=== PATIENT | male | born 1965 | race Caucasian/White ===

== ENCOUNTER 2020-10-18 17:35 | Day surgery (SDC) | payer OTHER ==
[~2020-10-18] VITALS: Ht 182.9 cm; Wt 115.7 kg
[2020-10-18 19:34] LABS: HEMOGLOBIN 13.6 gm/dl (14.0-17.5); RED BLOOD COUNT 4.36 M/UL (4.20-5.50); WHITE BLOOD COUNT 8.6 K/UL (4.5-11.0)
[2020-10-18 19:42] LABS: BUN/CREATININE RATIO 13 (0-10)
[2020-10-18] MEDS ORDERED: CREON DR 12,001 EACH PO (21:07)
[2020-10-18] MEDS ORDERED: DILTIAZEM 24HR240 M1 PO (21:08)
[2020-10-18] MEDS ORDERED: FLOMAX 0.4 MG0.4 MG PO (21:08)
[2020-10-18] MEDS ORDERED: GABAPENTIN300 MG PO (21:08)
[2020-10-18] MEDS ORDERED: POTASSIUM CHLO10 MEQ PO (21:09)
[2020-10-18] MEDS ORDERED: PROTONIX 40 MG40 M1 PO (21:09)
[2020-10-19] MEDS ORDERED: HYDROCODON-ACE1 EAC2 PO ×2 (13:11→15:38)
[2020-10-19] MEDS ORDERED: KEFLEX PO (14:24)
[2020-11-30] MEDS ORDERED: NABUMETONE750 MG PO (09:15)
[2020-11-30] MEDS ORDERED: PHENERGAN IM25 MG/ML PO (09:15)
[2020-11-30] MEDS ORDERED: HYDROCODON-ACE1 EAC2 PO (11:09)
[2020-11-30] MEDS ORDERED: CEPHALEXIN500 MG PO (12:08)
== END 2020-10-19 14:00 | disposition home or self-care (01) ==
LOC: ER1 17:35 → CDU 18:55 → ER1 18:55 → CDU 18:55 → OR 10-19 10:41 → CDU 10-19 14:00 → OR 10-19 14:00 → CDU 10-19 14:00
PROVIDERS: Internal Medicine Infectious Disease; Orthopaedic Surgery
PROC: 3E0T3BZ Introduction of Anesthetic Agent into Peripheral Nerves and Plexi, Percutaneous Approach (ICD-10-PCS; 2020-10-19)
PROC: 0PSV34Z Reposition Left Finger Phalanx with Internal Fixation Device, Percutaneous Approach (ICD-10-PCS; principal; 2020-10-19 11:56)
DX: S62.613B Displaced fracture of proximal phalanx of left middle finger, initial encounter for open fracture (principal); K21.9 Gastro-esophageal reflux disease without esophagitis; N40.0 Benign prostatic hyperplasia without lower urinary tract symptoms; I48.92 Unspecified atrial flutter; F17.210 Nicotine dependence, cigarettes, uncomplicated; G89.4 Chronic pain syndrome; G89.18 Other acute postprocedural pain; F11.20 Opioid dependence, uncomplicated; Z20.822 Contact with and (suspected) exposure to COVID-19; W29.4XXA Contact with nail gun, initial encounter; W45.0XXA Nail entering through skin, initial encounter; Y92.018 Other place in single-family (private) house as the place of occurrence of the external cause
CPT/HCPCS: 73130; 76000; 80053; 83735; 84443; 85025; 85610; 90471; 90715; 93005; 96374; 96375; 96376; 99284; C1713; G0378; J0690; J1100; J2001; J2250; J2270; J2370; J2405; J2704; J2795; J3010; J7030; J7120; U0002

== ENCOUNTER 2020-11-08 09:05 | Inpatient (IN) | payer OTHER ==
[~2020-11-08] VITALS: Ht 182.9 cm; Wt 93.9 kg
[~2020-11-08 09:05] MED LIST: CREON DR 12,001 EACH PO; DILTIAZEM 24HR240 M1 PO; FLOMAX 0.4 MG0.4 MG PO; GABAPENTIN300 MG PO; HYDROCODON-ACE1 EAC2 PO; KEFLEX PO; POTASSIUM CHLO10 MEQ PO; PROTONIX 40 MG40 M1 PO
[2020-11-08] MEDS ORDERED: ROBAXIN 750 MG750 MG PO (10:29)
[2020-11-08] MEDS ORDERED: HYDROCODON-ACE1 EAC2 PO (12:11)
[2020-11-08 15:20] LABS: HEMOGLOBIN 13.3 gm/dl (14.0-17.5); RED BLOOD COUNT 4.29 M/UL (4.20-5.50)
[2020-11-08 15:38] LABS: BUN/CREATININE RATIO 22 (0-10)
[2020-11-08] MEDS ORDERED: OXYCODONE-ACET1 EACH PO (16:53)
[2020-11-09 04:42] LABS: HEMOGLOBIN 13.4 gm/dl (14.0-17.5); RED BLOOD COUNT 4.34 M/UL (4.20-5.50); WHITE BLOOD COUNT 7.6 K/UL (4.5-11.0)
[2020-11-09 04:48] LABS: BUN/CREATININE RATIO 18 (0-10)
[2020-11-10 02:51] LABS: HEMOGLOBIN 13.1 gm/dl (14.0-17.5); RED BLOOD COUNT 4.26 M/UL (4.20-5.50); WHITE BLOOD COUNT 5.9 K/UL (4.5-11.0)
[2020-11-10 03:19] LABS: BUN/CREATININE RATIO 15 (0-10)
[2020-11-10] MEDS ORDERED: ASPIRIN81 MG PO (09:37)
[2020-11-30] MEDS ORDERED: PHENERGAN IM25 MG/ML PO (09:15)
[2020-11-30] MEDS ORDERED: NABUMETONE750 MG PO (09:15)
[2020-11-30] MEDS ORDERED: HYDROCODON-ACE1 EAC2 PO (11:09)
[2020-11-30] MEDS ORDERED: CEPHALEXIN500 MG PO (12:08)
== END 2020-11-10 10:55 | disposition home or self-care (01) | DRG 274 ==
LOC: OR 09:05 → PROG CARE 14:58
PROVIDERS: Physician Assistant; ADMIT Family Medicine
PROC: 02583ZZ Destruction of Conduction Mechanism, Percutaneous Approach (ICD-10-PCS; principal; 2020-11-09)
PROC: 4A023FZ Measurement of Cardiac Rhythm, Percutaneous Approach (ICD-10-PCS; 2020-11-09)
PROC: 4A0234Z Measurement of Cardiac Electrical Activity, Percutaneous Approach (ICD-10-PCS; 2020-11-09)
PROC: 02K83ZZ Map Conduction Mechanism, Percutaneous Approach (ICD-10-PCS; 2020-11-09)
PROC: B24BZZ4 Ultrasonography of Heart with Aorta, Transesophageal (ICD-10-PCS; 2020-11-09)
DX: I48.92 Unspecified atrial flutter (principal); K86.1 Other chronic pancreatitis; I45.2 Bifascicular block; I48.0 Paroxysmal atrial fibrillation; I35.8 Other nonrheumatic aortic valve disorders; I44.30 Unspecified atrioventricular block; Z20.822 Contact with and (suspected) exposure to COVID-19; G89.29 Other chronic pain; J44.9 Chronic obstructive pulmonary disease, unspecified; Y83.8 Other surgical procedures as the cause of abnormal reaction of the patient, or of later complication, without mention of misadventure at the time of the procedure; I10 Essential (primary) hypertension; F17.210 Nicotine dependence, cigarettes, uncomplicated; Z87.81 Personal history of (healed) traumatic fracture; Z91.14 Patient's other noncompliance with medication regimen; Z79.01 Long term (current) use of anticoagulants; Z90.49 Acquired absence of other specified parts of digestive tract; Z82.49 Family history of ischemic heart disease and other diseases of the circulatory system
CPT/HCPCS: 36415; 73130; 76000; 80053; 82550; 82553; 83735; 84439; 84443; 84484; 85025; 85610; 85730; 93005; 93312; 93320; 93609; 93621; 99152; 99153; C1713; C1730; C1733; C1766; J0690; J1160; J1200; J1644; J1885; J2001; J2250; J2270; J2704; J3010; J7040; J7120; U0002; U0003

== ENCOUNTER → 2020-11-30 | Day surgery (SDC) | payer OTHER ==
[~2020-11-30] MED LIST changes: +ASPIRIN81 MG PO; +CEPHALEXIN500 MG PO; +NABUMETONE750 MG PO; +OXYCODONE-ACET1 EACH PO; +PHENERGAN IM25 MG/ML PO; +ROBAXIN 750 MG750 MG PO
== END | disposition home or self-care (01) ==
LOC: OR 08:21
DX: T84.84XA Pain due to internal orthopedic prosthetic devices, implants and grafts, initial encounter (principal); S62.613D Displaced fracture of proximal phalanx of left middle finger, subsequent encounter for fracture with routine healing; J44.9 Chronic obstructive pulmonary disease, unspecified; K21.9 Gastro-esophageal reflux disease without esophagitis; F17.210 Nicotine dependence, cigarettes, uncomplicated; Z79.891 Long term (current) use of opiate analgesic; Z79.899 Other long term (current) drug therapy; W29.4XXD Contact with nail gun, subsequent encounter
CPT/HCPCS: 73130; J0690; J1100; J2001; J2250; J2405; J2704; J3010; J7120

== ENCOUNTER 2021-05-31 15:40 | Emergency (ER) | payer OTHER ==
[2021-05-31 16:52] LABS: HEMOGLOBIN 14.5 gm/dl (14.0-17.5); RED BLOOD COUNT 4.56 M/UL (4.20-5.50); WHITE BLOOD COUNT 9.5 K/UL (4.5-11.0)
[2021-05-31 17:13] LABS: BUN/CREATININE RATIO 15 (0-10)
[2021-05-31] MEDS ORDERED: COLACE 100MG C100 MG PO (18:50)
== END 2021-05-31 19:05 | disposition home or self-care (01) ==
LOC: ER1 15:40
PROVIDERS: Emergency Medicine
DX: K59.00 Constipation, unspecified (principal); K85.90 Acute pancreatitis without necrosis or infection, unspecified; F17.200 Nicotine dependence, unspecified, uncomplicated
CPT/HCPCS: 80053; 82272; 83690; 85025; 96374; 96375; 99284; J2270; J2405; Q9967

== ENCOUNTER 2021-12-04 06:14 | Inpatient (IN) | payer OTHER ==
[~2021-12-04] VITALS: Ht 182.9 cm; Wt 90.7 kg
[~2021-12-04 06:14] MED LIST changes: +COLACE 100MG C100 MG PO
[2021-12-04 06:44] LABS: HEMOGLOBIN 14.7 gm/dl (14.0-17.5); RED BLOOD COUNT 4.74 M/UL (4.20-5.50); WHITE BLOOD COUNT 13.2 K/UL (4.5-11.0)
[2021-12-04 07:00] LABS: BUN/CREATININE RATIO 12 (0-10)
[2021-12-05 07:52] LABS: HEMOGLOBIN 14.4 gm/dl (14.0-17.5); RED BLOOD COUNT 4.71 M/UL (4.20-5.50); WHITE BLOOD COUNT 14.7 K/UL (4.5-11.0)
[2021-12-05 08:01] LABS: BUN/CREATININE RATIO 14 (0-10)
[2021-12-06 01:44] LABS: HEMOGLOBIN 13.2 gm/dl (14.0-17.5); RED BLOOD COUNT 4.32 M/UL (4.20-5.50)
[2021-12-06 01:53] LABS: WHITE BLOOD COUNT 8.7 K/UL (4.5-11.0)
[2021-12-06 02:03] LABS: BUN/CREATININE RATIO 26 (0-10)
--- NOTE | 2021-12-06 14:11 | NUR ---
PTS HR IS UP TO 150'S TO 160'S NOTIFIED DR DELGADO.
--- NOTE | 2021-12-06 15:57 | NUR ---
PTS HEART RATE IS [phone] DELGADO ORDERS TO WATCH PT FOR NOW AND WILL DO A FOLLOW UP IN AN HOUR.
[2021-12-08] MEDS ORDERED: PERCOCET 10-321 EACH PO (10:09)
[2021-12-08] MEDS ORDERED: ELIQUIS 5 MG TAB5 MG PO (10:09)
[2021-12-08] MEDS ORDERED: AMIODARONE HCL200 MG PO ×2 (10:09→10:22)
[2021-12-08] MEDS ORDERED: ANUSOL HC SUPP1 SUPP PR (10:09)
[2021-12-08] MEDS ORDERED: LOPRESSOR 50 MG50 MG PO (10:09)
== END 2021-12-08 13:01 | disposition home or self-care (01) | DRG 439 ==
LOC: ER1 06:14 → CDU 09:01 → MED SURG 4 17:00 → PROG CARE 12-05 02:52
PROVIDERS: Physician Assistant; ADMIT Internal Medicine
PROC: B24BZZZ Ultrasonography of Heart with Aorta (ICD-10-PCS; principal; 2021-12-06)
PROC: 5A2204Z Restoration of Cardiac Rhythm, Single (ICD-10-PCS; 2021-12-06)
DX: K85.90 Acute pancreatitis without necrosis or infection, unspecified (principal); R65.10 Systemic inflammatory response syndrome (SIRS) of non-infectious origin without acute organ dysfunction; I45.2 Bifascicular block; Z20.822 Contact with and (suspected) exposure to COVID-19; K86.1 Other chronic pancreatitis; R91.1 Solitary pulmonary nodule; F17.210 Nicotine dependence, cigarettes, uncomplicated; K59.09 Other constipation; K64.8 Other hemorrhoids; I10 Essential (primary) hypertension; K64.9 Unspecified hemorrhoids; I48.0 Paroxysmal atrial fibrillation; Z79.01 Long term (current) use of anticoagulants; Z90.49 Acquired absence of other specified parts of digestive tract; Z82.49 Family history of ischemic heart disease and other diseases of the circulatory system
CPT/HCPCS: ECHO; 36415; 80048; 80053; 80061; 81001; 82550; 82553; 83690; 83735; 84132; 84439; 84443; 84484; 85025; 93005; 93306; 94640; 94664; 94760; 96374; 96375; 96376; 99285; C9113; J0360; J1160; J1170; J1200; J1644; J1885; J2250; J2270; J2405; J2550; J3010; J3475; J7030; Q9967; U0002

== ENCOUNTER → 2022-01-30 | Day surgery (SDC) | payer OTHER ==
[~2022-01-30] MED LIST changes: +AMIODARONE HCL200 MG PO; +ANUSOL HC SUPP1 SUPP PR; +ELIQUIS 5 MG TAB5 MG PO; +LOPRESSOR 50 MG50 MG PO; +PERCOCET 10-321 EACH PO; +PERCOCET 5/325 T1 EA PO; +SENNA S TABLET1 EACH PO
== END | disposition home or self-care (01) ==
LOC: OR 08:41
DX: C44.500 Unspecified malignant neoplasm of anal skin (principal); K64.8 Other hemorrhoids; K64.4 Residual hemorrhoidal skin tags; I10 Essential (primary) hypertension; I48.91 Unspecified atrial fibrillation; F17.210 Nicotine dependence, cigarettes, uncomplicated; Z79.899 Other long term (current) drug therapy
CPT/HCPCS: J1170; J2250; J2704; J3010

== ENCOUNTER 2022-02-16 13:26 | Inpatient (IN) | payer OTHER ==
[~2022-02-16] VITALS: Ht 182.9 cm; Wt 90.7 kg
[2022-02-16 14:32] LABS: HEMOGLOBIN 15.1 gm/dl (14.0-17.5); RED BLOOD COUNT 4.85 M/UL (4.20-5.50); WHITE BLOOD COUNT 15.6 K/UL (4.5-11.0)
[2022-02-16 14:52] LABS: BUN/CREATININE RATIO 11 (0-10)
[2022-02-16] MEDS ORDERED: SENNA PLUS TAB1 EACH PO (16:56)
[2022-02-16] MEDS ORDERED: PERCOCET 5-3251 EACH PO (16:56)
[2022-02-17 02:54] LABS: RED BLOOD COUNT 4.55 M/UL (4.20-5.50)
[2022-02-17 02:55] LABS: WHITE BLOOD COUNT 25.6 K/UL (4.5-11.0)
--- NOTE | 2022-02-17 12:25 | NUR ---
Telemetry called about patient having a 15 second run of V-Tach. Checked on patient who was asymptomatic and then called to notify Dr. Luis who said he would come to check him out.
[2022-02-18 04:05] LABS: HEMOGLOBIN 12.5 gm/dl (14.0-17.5); RED BLOOD COUNT 4.08 M/UL (4.20-5.50); WHITE BLOOD COUNT 9.8 K/UL (4.5-11.0)
[2022-02-18 04:24] LABS: BUN/CREATININE RATIO 24 (0-10)
[2022-02-19 02:38] LABS: RED BLOOD COUNT 3.9 M/UL (4.20-5.50); WHITE BLOOD COUNT 8.5 K/UL (4.5-11.0)
[2022-02-19 03:33] LABS: BUN/CREATININE RATIO 22 (0-10)
[2022-02-20 03:12] LABS: BUN/CREATININE RATIO 11 (0-10)
[2022-02-20 03:32] LABS: HEMOGLOBIN 11.8 gm/dl (14.0-17.5); RED BLOOD COUNT 3.82 M/UL (4.20-5.50); WHITE BLOOD COUNT 7.4 K/UL (4.5-11.0)
[2022-02-21 01:53] LABS: HEMOGLOBIN 13.6 gm/dl (14.0-17.5); WHITE BLOOD COUNT 7.2 K/UL (4.5-11.0)
[2022-02-21 01:54] LABS: RED BLOOD COUNT 4.42 M/UL (4.20-5.50)
[2022-02-21 02:29] LABS: BUN/CREATININE RATIO 11 (0-10)
[2022-02-22 03:05] LABS: HEMOGLOBIN 12.6 gm/dl (14.0-17.5); RED BLOOD COUNT 4.16 M/UL (4.20-5.50)
[2022-02-22 03:44] LABS: BUN/CREATININE RATIO 16 (0-10)
[2022-02-22] MEDS ORDERED: LIDOCAINE-PRILOC5 GM TOP (10:14)
[2022-02-22] MEDS ORDERED: PERCOCET 10-321 EACH PO (10:14)
[2022-02-22] MEDS ORDERED: PHENERGAN 12.12.5 M1 PO (10:14)
[2022-02-22] MEDS ORDERED: PROTONIX40 MG PO (10:14)
[2022-02-22] MEDS ORDERED: POLYETHYLENE GL17 GM PO (10:14)
[2022-02-22] MEDS ORDERED: PROCTOFOAM-HC 110 G1 PR (10:14)
[2022-02-23 13:42] LABS: HEMOGLOBIN 12.4 gm/dl (14.0-17.5); RED BLOOD COUNT 4.04 M/UL (4.20-5.50); WHITE BLOOD COUNT 8.1 K/UL (4.5-11.0)
[2022-02-23 14:06] LABS: BUN/CREATININE RATIO 14 (0-10)
[2022-02-24 06:14] LABS: HEMOGLOBIN 12.8 gm/dl (14.0-17.5); RED BLOOD COUNT 4.21 M/UL (4.20-5.50); WHITE BLOOD COUNT 8.9 K/UL (4.5-11.0)
[2022-02-24 06:30] LABS: BUN/CREATININE RATIO 17 (0-10)
[2022-02-25 03:38] LABS: HEMOGLOBIN 11.9 gm/dl (14.0-17.5); RED BLOOD COUNT 3.92 M/UL (4.20-5.50)
[2022-02-25 04:20] LABS: BUN/CREATININE RATIO 14 (0-10)
[2022-02-26 02:54] LABS: HEMOGLOBIN 12.8 gm/dl (14.0-17.5); RED BLOOD COUNT 4.23 M/UL (4.20-5.50); WHITE BLOOD COUNT 9.5 K/UL (4.5-11.0)
[2022-02-26 03:40] LABS: BUN/CREATININE RATIO 12 (0-10)
[2022-02-27] MEDS ORDERED: PHENERGAN 12.12.5 M1 PO (09:44)
[2022-02-27] MEDS ORDERED: COZAAR 50MG TAB50 MG PO (09:44)
[2022-02-27] MEDS ORDERED: LOPRESSOR 25 MG25 MG PO (09:44)
== END 2022-02-27 11:46 | disposition home or self-care (01) | DRG 439 ==
LOC: ER1 13:26 → M/S 16:06 → CDU 16:06 → M/S 18:02
PROVIDERS: Internal Medicine; Physician Assistant; Physician Assistant Medical; ADMIT Internal Medicine
PROC: B24BZZZ Ultrasonography of Heart with Aorta (ICD-10-PCS; principal; 2022-02-22)
DX: K85.90 Acute pancreatitis without necrosis or infection, unspecified (principal); C20 Malignant neoplasm of rectum; Z20.822 Contact with and (suspected) exposure to COVID-19; K86.3 Pseudocyst of pancreas; I47.2 Ventricular tachycardia; K63.0 Abscess of intestine; I48.92 Unspecified atrial flutter; N17.9 Acute kidney failure, unspecified; E86.0 Dehydration; F17.210 Nicotine dependence, cigarettes, uncomplicated; K64.9 Unspecified hemorrhoids; I08.1 Rheumatic disorders of both mitral and tricuspid valves; R91.1 Solitary pulmonary nodule; K86.1 Other chronic pancreatitis; I48.0 Paroxysmal atrial fibrillation; Z79.01 Long term (current) use of anticoagulants; Z91.14 Patient's other noncompliance with medication regimen; Z90.49 Acquired absence of other specified parts of digestive tract; Z82.5 Family history of asthma and other chronic lower respiratory diseases
CPT/HCPCS: ECHO; 0240U; 36415; 71260; 72195; 80048; 80053; 81001; 82378; 83605; 83690; 83735; 84439; 84443; 84484; 85025; 85027; 86140; 93005; 93306; 96361; 96374; 96375; 96376; 99285; C9113; J1170; J1650; J2185; J2270; J2405; J2543; J2550; Q9967

== ENCOUNTER 2022-04-05 07:11 | Inpatient (IN) | payer OTHER ==
[~2022-04-05] VITALS: Ht 182.9 cm; Wt 82.3 kg
[~2022-04-05 07:11] MED LIST changes: +COZAAR 50MG TAB50 MG PO; +LIDOCAINE-PRILOC5 GM TOP; +LOPRESSOR 25 MG25 MG PO; +PERCOCET 5-3251 EACH PO; +PHENERGAN 12.12.5 M1 PO; +POLYETHYLENE GL17 GM PO; +PROCTOFOAM-HC 110 G1 PR; +PROTONIX40 MG PO; +SENNA PLUS TAB1 EACH PO
[2022-04-05 08:06] LABS: HEMOGLOBIN 13.3 gm/dl (14.0-17.5); RED BLOOD COUNT 4.36 M/UL (4.20-5.50); WHITE BLOOD COUNT 5.2 K/UL (4.5-11.0)
[2022-04-05 08:35] LABS: BUN/CREATININE RATIO 19 (0-10)
[2022-04-05] MEDS ORDERED: LIDOCAINE-PRILOC5 GM TOP (11:52)
[2022-04-05] MEDS ORDERED: MORPHINE SULFAT60 MG PO (11:54)
[2022-04-05] MEDS ORDERED: CAPECITABINE150 MG PO (11:54)
[2022-04-05] MEDS ORDERED: PROMETHAZINE12.5 M1 PO (11:55)
[2022-04-05] MEDS ORDERED: CAPECITABINE500 MG PO (11:55)
[2022-04-05] MEDS ORDERED: OXYCODONE HCL10 MG PO (11:57)
--- NOTE | 2022-04-05 19:15 | NUR ---
04/05/22 1825 COMPLAINING OF SEVERE CHESTPAIN. MD NOTIFIED, EKG AND LABS ORDERED DR MILLER HERE BP 139/96 O2 IN USE 183 120 BP 149/101 SL NTG GIVEN CLAMMY SKIN 183 EASING UP SOME 183 130/106 SL NTG GIVEN 1840 122/80 99 PAIN 5 1850 MS GIVEN 95/81 87 1855 LYING QUIETLY 1900 OFFERS NO FURTHER COMPLAINTS AT THIS TIME
--- NOTE | 2022-04-05 23:09 | NUR ---
Pt. COMPLAINED OF SEVERE CHEST PAIN 10 OUT OF 10 ON NUMERICAL PAIN SCALE. ADMINISTERED PT.S PRN SUBLINGUAL NITROGLYCERIN 1ST DOSE @ 21:55 BP:143/94 HR:80 2ND DOSE @22:00 WITH 3MG OF MORPHINE IVP PRN BP:138/85 HR:99. Pt. EXPLAINED THE PAIN "COMING AND GOING" 3RD DOSE @ 22:11 BP:111/80 HR:89 CALLED MD MADE AWARE ORDERS A HEPARIN DRIP TO BE STARTED PER PROTOCOL WILL CONTINUE TO MONITOR.
[2022-04-05 23:30] LABS: HEMOGLOBIN 11.6 gm/dl (14.0-17.5); WHITE BLOOD COUNT 4.9 K/UL (4.5-11.0)
[2022-04-05 23:36] LABS: RED BLOOD COUNT 3.84 M/UL (4.20-5.50)
[2022-04-06 07:02] LABS: HEMOGLOBIN 11.8 gm/dl (14.0-17.5); RED BLOOD COUNT 3.86 M/UL (4.20-5.50); WHITE BLOOD COUNT 5.5 K/UL (4.5-11.0)
[2022-04-06 07:27] LABS: BUN/CREATININE RATIO 14 (0-10)
--- NOTE | 2022-04-06 15:06 | NUR ---
TELELMTRY CALLS INFORMS RN OF HIGH HR. PT COMPLAINING OF INCREASE IN CHEST PAIN. MD MADE AWARE, MD TO TO COME TO BEDSIDE.
--- NOTE | 2022-04-06 15:15 | NUR ---
MD TO BEDSIDE NEW ORDERS GIVEN AND CARRIED OUT. RESP EVEN AND UN LABORED, HR REMAINS ELEVATED PT [id number].
--- NOTE | 2022-04-06 15:40 | NUR ---
PT REPORTS DECREASE IN CHEST PAIN, PT RESTING MORE COMFORTABLY. NAD, HR DOWN TO 111 BPM, OTHER VSS. PT TO BE TRANSFERED TO PCU.
--- NOTE | 2022-04-06 18:24 | NUR ---
PT FEBRILE AT 101.1, MADE AWARE. TO PUT IN NEW ORDERS.
[2022-04-06 20:12] LABS: HEMOGLOBIN 12.2 gm/dl (14.0-17.5); RED BLOOD COUNT 4.02 M/UL (4.20-5.50)
[2022-04-06 20:16] LABS: WHITE BLOOD COUNT 11.4 K/UL (4.5-11.0)
[2022-04-07 02:33] LABS: HEMOGLOBIN 11.5 gm/dl (14.0-17.5); RED BLOOD COUNT 3.78 M/UL (4.20-5.50); WHITE BLOOD COUNT 9.3 K/UL (4.5-11.0)
[2022-04-07 02:40] LABS: BUN/CREATININE RATIO 14 (0-10)
[2022-04-07 10:20] LABS: BORDETELLA PARAPERTUSSIS Not Detected (Not Detectd); BORDETELLA PERTUSSIS Not Detected (Not Detectd); CHLAMYDIA PNEUMONIAE Not Detected (Not Detectd); CORONAVIRUS HKU1 Not Detected (Not Detectd); CORONAVIRUS NL63 Not Detected (Not Detectd); CORONAVIRUS OC43 Not Detected (Not Detectd); CORONOAVIRUS 229E Not Detected (Not Detectd); HUMAN METAPNEUMOVIRUS Not Detected (Not Detectd); HUMAN RHINOVIRUS/ENTEROVIRUS Not Detected (Not Detectd); INFLUENZA A Not Detected (Not Detectd); INFLUENZA B Not Detected (Not Detectd); MYCOPLASMA PNEUMONIAE Not Detected (Not Detectd); PARAINFLUENZA VIRUS 1 Not Detected (Not Detectd); PARAINFLUENZA VIRUS 2 Not Detected (Not Detectd); PARAINFLUENZA VIRUS 3 Not Detected (Not Detectd); PARAINFLUENZA VIRUS 4 Not Detected (Not Detectd); RESPIRATORY SYNCYTIAL VIRUS Not Detected (Not Detectd)
[2022-04-07 11:45] LABS: SARS-CoV-2 NOT DETECTED (Not Detectd)
[2022-04-08 02:22] LABS: HEMOGLOBIN 11.1 gm/dl (14.0-17.5); RED BLOOD COUNT 3.65 M/UL (4.20-5.50)
[2022-04-08 02:29] LABS: WHITE BLOOD COUNT 5.8 K/UL (4.5-11.0)
[2022-04-08 02:43] LABS: BUN/CREATININE RATIO 14 (0-10)
[2022-04-08] MEDS ORDERED: LOPRESSOR 25 MG25 MG PO (16:01)
[2022-04-08] MEDS ORDERED: ELIQUIS 5 MG TAB5 MG PO (16:01)
[2022-04-08] MEDS ORDERED: AMOX TR-K CLV1 EAC4 PO (16:01)
[2022-04-08] MEDS ORDERED: ISOSORBIDE MONO30 MG PO (16:01)
== END 2022-04-08 16:35 | disposition home or self-care (01) | DRG 175 ==
LOC: ER1 07:11 → PROG CARE 12:06 → CDU 12:06 → M/S 12:56 → PROG CARE 04-06 08:58
PROVIDERS: Family Medicine; Physician Assistant Medical; Student in an Organized Health Care Education/Training Program; ADMIT Internal Medicine
PROC: B24BZZZ Ultrasonography of Heart with Aorta (ICD-10-PCS; principal; 2022-04-06)
DX: I26.99 Other pulmonary embolism without acute cor pulmonale (principal); J18.9 Pneumonia, unspecified organism; C78.5 Secondary malignant neoplasm of large intestine and rectum; K86.1 Other chronic pancreatitis; F11.20 Opioid dependence, uncomplicated; I47.1 Supraventricular tachycardia; Z20.822 Contact with and (suspected) exposure to COVID-19; I48.0 Paroxysmal atrial fibrillation; M54.9 Dorsalgia, unspecified; F17.210 Nicotine dependence, cigarettes, uncomplicated; I45.81 Long QT syndrome; I07.1 Rheumatic tricuspid insufficiency; I27.20 Pulmonary hypertension, unspecified; Z79.01 Long term (current) use of anticoagulants; Z91.14 Patient's other noncompliance with medication regimen; Z90.49 Acquired absence of other specified parts of digestive tract; Z82.5 Family history of asthma and other chronic lower respiratory diseases; Z82.3 Family history of stroke; Z79.82 Long term (current) use of aspirin
CPT/HCPCS: ECHO; 36415; 71045; 80048; 80053; 80061; 81001; 82550; 82553; 83036; 83690; 83735; 84439; 84443; 84484; 85025; 85027; 85379; 85610; 85730; 87040; 87633; 93005; 93306; 96372; 96374; 96375; 96376; 99285; G0378; J0692; J1170; J1644; J1650; J2270; J3370; J7070; Q9967; U0002